=== PATIENT | female | born 1990 | race Caucasian/White ===

== ENCOUNTER 2017-08-16 06:14 | Emergency (ER) | payer MEDICAID, OTHER ==
[~2017-08-16] VITALS: Ht 170.2 cm; Wt 123.0 kg
[~2017-08-16 06:14] MED LIST: PREN-88 PO
[2017-08-16] MEDS ORDERED: KETOROLAC 60MG/2ML VIAL IM ONE (08:15)
[2017-08-16 11:07] VITALS: BP 113/78
== END 2017-08-16 11:10 | disposition home or self-care (01) ==
LOC: ER 07:06
DX: S50.12XA Contusion of left forearm, initial encounter (principal); M54.5 Low back pain; V49.88XA Car occupant (driver) (passenger) injured in other specified transport accidents, initial encounter; Y93.89 Activity, other specified; Y92.89 Other specified places as the place of occurrence of the external cause; Y99.8 Other external cause status; Z98.890 Other specified postprocedural states
CPT/HCPCS: 73060; 73090; 81025; 96372; 99284; J1885

== ENCOUNTER 2021-04-20 18:05 | Emergency (ER) | payer OTHER ==
[~2021-04-20] VITALS: Ht 170.2 cm; Wt 131.0 kg
[2021-04-20] MEDS ORDERED: ACETAMINOPHEN 325MG TABLET PO STA (18:19)
[2021-04-20 18:51] LABS: BASOPHILS % 0.4 % (0.0-2.0); EOSINOPHILS % 0.7 % (0.0-5.0); HEMATOCRIT. 34.8 % (36.0-48.0); HEMOGLOBIN. 11.3 g/dL (12.0-16.0); LYMPHOCYTES % 36.1 % (20.0-50.0); MEAN CORPUSCULAR HEMOGLOBIN 25.8 pg (28.0-32.0); MEAN CORPUSCULAR VOLUME 79.3 fL (81.0-99.0); MONOCYTES % 5.8 % (2.0-8.0); PLATELET 314 x1000/uL (130-400); RED BLOOD CELL COUNT 4.39 mill/uL (4.2-5.4)
[2021-04-20 18:58] LABS: CHLORIDE 109 mEq/L (98-107)
[2021-04-20 20:30] VITALS: BP 130/86
[2021-04-20] MEDS ORDERED: ACET-2708 MT (20:34)
[2021-04-20] MEDS ORDERED: CYCL10TA7 MT (20:34)
== END 2021-04-20 20:50 | disposition home or self-care (01) ==
LOC: ER 18:05
DX: R07.89 Other chest pain (principal); M54.59 Other low back pain; D64.9 Anemia, unspecified
CPT/HCPCS: 36415; 71045; 80053; 84484; 85025; 93005; 99285

== ENCOUNTER 2021-07-26 07:50 | Emergency (ER) | payer OTHER ==
[~2021-07-26] VITALS: Ht 170.2 cm; Wt 137.0 kg
[~2021-07-26 07:50] MED LIST changes: +ACET-2708 MT; +CYCL10TA7 MT
[2021-07-26 07:55] VITALS: BP 143/97
[2021-07-26] MEDS ORDERED: MAGNESIUM/ALUMINUM HYDROXIDE/SIMETHICONE 30ML UDC PO STA (08:11)
[2021-07-26] MEDS ORDERED: ONDANSETRON 4MG ODT PO STA (08:11)
[2021-07-26] MEDS ORDERED: FAMOTIDINE 20MG TABLET PO ONE (08:15)
[2021-07-26] MEDS ORDERED: FAMO20TA8 MT (08:17)
[2021-07-26] MEDS ORDERED: MAG355OR20 PO (08:17)
[2021-07-26] MEDS ORDERED: ONDA4TAB5 MT (08:17)
[2021-07-26 09:19] LABS: CLARITY URINE CLEAR (CLEAR); COLOR URINE YELLOW (YELLOW); KETONES URINE NEGATIVE (NEGATIVE); LEUKOCYTE ESTERASE URINE 1+ (NEGATIVE); NITRITE URINE NEGATIVE (NEGATIVE); OCCULT BLOOD URINE NEGATIVE (NEGATIVE); PH URINE 6.5 (4.5-8.0); PROTEIN URINE NEGATIVE (NEGATIVE); SPECIFIC GRAVITY URINE 1.027 (1.005-1.030); UROBILINOGEN URINE 0.2 E.U./dL (0.2-1.0)
[2021-07-26 09:23] LABS: UCG SCREEN NEGATIVE
== END 2021-07-26 10:01 | disposition home or self-care (01) ==
LOC: ER 07:58
DX: K52.9 Noninfective gastroenteritis and colitis, unspecified (principal)
CPT/HCPCS: 81003; 81025; 99284; Q0162

== ENCOUNTER 2022-02-24 04:48 | Emergency (ER) | payer OTHER ==
[~2022-02-24] VITALS: Ht 170.2 cm; Wt 136.0 kg
[~2022-02-24 04:48] MED LIST changes: +CYCL10TA21 MT; -CYCL10TA7 MT; +FAMO20TA8 MT; +MAG355OR20 PO; +ONDA4TAB5 MT
[2022-02-24] MEDS ORDERED: KETOROLAC 15MG/ML VIAL IV ONE (05:30)
[2022-02-24 06:14] LABS: BASOPHILS % 0.2 % (0.0-2.0); EOSINOPHILS % 0.6 % (0.0-5.0); HEMATOCRIT. 31.4 % (36.0-48.0); HEMOGLOBIN. 10.5 g/dL (12.0-16.0); LYMPHOCYTES % 11.8 % (20.0-50.0); MEAN CORPUSCULAR HEMOGLOBIN 26.3 pg (28.0-32.0); MEAN CORPUSCULAR VOLUME 78.5 fL (81.0-99.0); MEAN PLATELET VOLUME 9.2 fl (7.4-10.4); MONOCYTES % 5.1 % (2.0-8.0); NEUTROPHILS % 82.3 % (40.0-76.0); PLATELET 268 x1000/uL (130-400); RED CELL DISTRIBUTION WIDTH 14.1 % (11.6-14.6)
[2022-02-24 06:32] LABS: HCG SCREEN NEGATIVE
[2022-02-24 07:38] LABS: CHLORIDE 108 mEq/L (98-107)
[2022-02-24] MEDS ORDERED: IOHEXOL-300 100 ML BOTTLE ONE (09:11)
[2022-02-24] MEDS ORDERED: IBUP-2028 MT (09:56)
[2022-02-24 10:17] VITALS: BP 111/61
== END 2022-02-24 10:20 | disposition home or self-care (01) ==
LOC: ER 04:48
DX: J02.9 Acute pharyngitis, unspecified (principal); R09.81 Nasal congestion; Z98.890 Other specified postprocedural states; Z79.899 Other long term (current) drug therapy
CPT/HCPCS: 36415; 70487; 70491; 80053; 83605; 84703; 85025; 87040; 87070; 87430; 96374; 99285; J1885; Q9967; Z7610

== ENCOUNTER 2024-03-14 15:35 | Emergency (ER) | payer MEDICAID, OTHER ==
[~2024-03-14] VITALS: Ht 170.2 cm; Wt 136.0 kg
[~2024-03-14 15:35] MED LIST changes: +IBUP-2028 MT; -MAG355OR20 PO; +[UNRECOGNIZED DRUG - CODE] PO
[2024-03-14 15:45] VITALS: BP 136/90; RESP 18; TEMP 97.8; O2SAT 100
[2024-03-14 16:03] VITALS: PULSE 92; O2SAT 97
[2024-03-14 19:03] LABS: CHLORIDE 108 mEq/L (98-107); POTASSIUM 3.9 mEq/L (3.5-5.1); SODIUM 141 mEq/L (136-145)
[2024-03-14 19:04] LABS: CARBON DIOXIDE 26 mEq/L (21-32)
[2024-03-14 19:05] LABS: BASOPHILS % 0.4 % (0.0-2.0); CALCIUM 9.1 mg/dL (8.7-10.4); DIFFERENTIAL COMMENT 0; EOSINOPHILS % 0.8 % (0.0-5.0); HEMATOCRIT. 33.2 % (36.0-48.0); HEMOGLOBIN. 10.2 g/dL (12.0-16.0); LYMPHOCYTES % 31.8 % (20.0-50.0); MEAN CORPUSCULAR HEMOGLOBIN 22.9 pg (28.0-32.0); MEAN CORPUSCULAR HGB CONC 30.8 g/dL (31.0-37.0); MEAN CORPUSCULAR VOLUME 74.4 fL (81.0-99.0); MEAN PLATELET VOLUME 8.9 fl (7.4-10.4); MONOCYTES % 4.8 % (2.0-8.0); NEUTROPHILS % 62.2 % (40.0-76.0); PLATELET 339 x1000/uL (130-400); RED BLOOD CELL COUNT 4.46 mill/uL (4.2-5.4); RED CELL DISTRIBUTION WIDTH 15.4 % (11.6-14.6); WHITE BLOOD COUNT 6.7 x1000/uL (4.5-11.0)
[2024-03-14 19:09] LABS: CREATININE 0.6 mg/dL (0.6-1.0); GLUCOSE 98 mg/dL (70-105); UREA NITROGEN BLOOD 9 mg/dL (9-23)
[2024-03-14 19:10] LABS: B-HCG QUANTITATIVE 123 mIU/mL (<3)
== END 2024-03-14 21:54 | disposition home or self-care (01) ==
LOC: ER 15:35
DX: O20.9 Hemorrhage in early pregnancy, unspecified (principal); Z3A.01 Less than 8 weeks gestation of pregnancy; Z98.890 Other specified postprocedural states
CPT/HCPCS: 36415; 76801; 80048; 84702; 85025; 86850; 86900; 99284